=== PATIENT | female | born 1990 | race Caucasian/White ===

== ENCOUNTER 2018-03-01 08:35 | Emergency (ER) | payer MEDICAID, OTHER ==
[~2018-03-01] VITALS: Ht 172.7 cm; Wt 55.0 kg
[~2018-03-01 08:35] MED LIST: IBUP600 PO; PERI8.6T PO; PRENCAP6 PO
[2018-03-01 08:39] VITALS: BP 118/66; PULSE 66; RESP 18; TEMP 98.6; O2SAT 100
[2018-03-01] MEDS ORDERED: PREN1PAK9 PO (08:52)
[2018-03-01] MEDS ORDERED: VITA20003 PO (08:52)
[2018-03-01 09:51] LABS: AUTOMATED NEUTROPHIL # 6.6 TH/MM3 (1.8-7.7); BASOPHIL # 0.1 TH/MM3 (0-0.2); BASOPHIL % 0.8 % (0.0-2.0); EOSINOPHIL # 0.2 TH/MM3 (0-0.4); EOSINOPHIL % 1.8 % (0.0-4.0); HEMATOCRIT 41.8 % (35.0-46.0); HEMOGLOBIN 13.8 GM/DL (11.6-15.3); LYMPH % 19.1 % (9.0-44.0); LYMPHOCYTE # 1.8 TH/MM3 (1.0-4.8); MEAN CELL VOLUME 88.9 FL (80.0-100.0); MEAN CORPUSCULAR HEMOGLOBIN 29.4 PG (27.0-34.0); MEAN CORPUSCULAR HGB CONC 33.1 % (32.0-36.0); MEAN PLATELET VOLUME 8.2 FL (7.0-11.0); MONO % 6.8 % (0.0-8.0); MONOCYTE # 0.6 TH/MM3 (0-0.9); NEUT % 71.5 % (16.0-70.0); PLATELET COUNT 350 TH/MM3 (150-450); RED CELL DISTRIBUTION WIDTH 13.6 % (11.6-17.2); WHITE BLOOD COUNT 9.3 TH/MM3 (4.0-11.0)
[2018-03-01 10:04] LABS: ALBUMIN 3.7 GM/DL (3.4-5.0); AST (GOT) 13 U/L (15-37); BICARBONATE 25.2 MEQ/L (21.0-32.0); BLOOD UREA NITROGEN 9 MG/DL (7-18); CALCIUM 8.8 MG/DL (8.5-10.1); CHLORIDE 104 MEQ/L (98-107); CREATININE 0.78 MG/DL (0.50-1.00); GLOMERULAR FILTRATION RATE 90 ML/MIN (>89); GLUCOSE,RANDOM 99 MG/DL (74-106); SODIUM (NA) 139 MEQ/L (136-145)
--- NOTE | 2018-03-01 10:04 | PD ---
HPI Chief Complaint: Related Problem Time Seen by Provider: 08:51 Travel History International Travel<30 days: No Contact w/Intl Traveler<30days: No Traveled to known affect area: No History of Present Illness HPI This is a 27-year-old who is 11 weeks by ultrasound who presents to the emergency department with vaginal bleeding. She says she has been having spotting throughout the week and then this morning she woke up and she had a large amount of dark blood coming from her vagina feeling like she could have soaked through 2 pads, associated with abdominal cramping, constant, moderate severity with some lightheadedness. She has never had a miscarriage before. She did have an ultrasound which confirmed intrauterine with a normal heartbeat 3 weeks ago. PFSH Past Medical History Medical History: Denies Significant Hx Immunizations Current: Yes ?: LMP: 12/03/17 Past Surgical History Surgical History: No Previous Surgery Social History Alcohol Use: No Tobacco Use: No Substance Use: Yes ([facility] ) Allergies-Medications (Allergen,Severity, Reaction): Coded Allergies: amoxicillin (Unverified Allergy, Severe, HIVES, 03/01/18) Reported Meds & Prescriptions Reported Meds & Active Scripts Active Reported Vitamin D (Cholecalciferol) 2,000 Unit Tab 1,000 Unit PO WEEKLY + Complete Multi 18-0.8 & 290 mg ( Mv & Min W/Fe Prot Le) 18 Mg Iron-800 Mcg-290 Mg-225 Mg Handy PO DAILY Review of Systems Except as stated in HPI: all other systems reviewed are Neg Physical Exam Narrative GENERAL:Well appearing, no acute distress SKIN: Focused skin assessment warm and dry. HEAD: Atraumatic. Normocephalic. EYES: Pupils equal and round. No injection or drainage. ENT: Moist mucous membranes NECK: Trachea midline. CARDIOVASCULAR: Regular rate and rhythm. No murmur appreciated. RESPIRATORY: Clear to auscultation. Breath sounds equal bilaterally. GASTROINTESTINAL: Abdomen soft, mildly tender to palpation in the lower abdomen with no rebound or guarding. GANG SAWYER: Dark clots in the vault with no bright red bleeding, cervix is open MUSCULOSKELETAL: No obvious deformities. NEUROLOGICAL: Awake and alert. No obvious cranial nerve deficits. Moving all extremities. PSYCHIATRIC: Appropriate mood and affect; insight and judgment normal. Data Data Last Documented VS Vital Signs Date Time Temp Pulse Resp B/P (MAP) Pulse Ox O2 Delivery O2 Flow Rate FiO2 03/01/18 13:00 69 18 112/56 (74) 100 Room Air 03/01/18 08:39 98.6 Orders Orders Ed Poc Ultrasound (03/01/18 ) Complete Blood Count With Diff (03/01/18 09:34) Comprehensive Metabolic Panel (03/01/18 09:34) ^ Insert Iv (03/01/18 09:34) Beta Hcg (Quant/Titer) (03/01/18 09:34) Rhogam Only (03/01/18 09:35) Us Pelvis (Ques Pr/Ect)W Trans (03/01/18 ) Labs Laboratory Tests Test 03/01/18 09:15 White Blood Count 9.3 TH/MM3 Red Blood Count 4.70 MIL/MM3 Hemoglobin 13.8 GM/DL Hematocrit 41.8 % Mean Corpuscular Volume 88.9 FL Mean Corpuscular Hemoglobin 29.4 PG Mean Corpuscular Hemoglobin Concent 33.1 % Red Cell Distribution Width 13.6 % Platelet Count 350 TH/MM3 Mean Platelet Volume 8.2 FL Neutrophils (%) (Auto) 71.5 % Lymphocytes (%) (Auto) 19.1 % Monocytes (%) (Auto) 6.8 % Eosinophils (%) (Auto) 1.8 % Basophils (%) (Auto) 0.8 % Neutrophils # (Auto) 6.6 TH/MM3 Lymphocytes # (Auto) 1.8 TH/MM3 Monocytes # (Auto) 0.6 TH/MM3 Eosinophils # (Auto) 0.2 TH/MM3 Basophils # (Auto) 0.1 TH/MM3 CBC Comment DIFF FINAL Differential Comment Blood Urea Nitrogen 9 MG/DL Creatinine 0.78 MG/DL Random Glucose 99 MG/DL Total Protein 7.5 GM/DL Albumin 3.7 GM/DL Calcium Level 8.8 MG/DL Alkaline Phosphatase 40 U/L Aspartate Amino Transf (AST/SGOT) 13 U/L Alanine Aminotransferase (ALT/SGPT) 18 U/L Total Bilirubin 0.2 MG/DL Sodium Level 139 MEQ/L Potassium Level 3.8 MEQ/L Chloride Level 104 MEQ/L Carbon Dioxide Level 25.2 MEQ/L Anion Gap 10 MEQ/L Estimat Glomerular Filtration Rate 90 ML/MIN Human Chorionic Gonadotropin, Quant 3643 MIU/ML MDM Medical Decision Making Medical Screen Exam Complete: Yes Emergency Medical Condition: Yes Interpretation(s) Afebrile, no tachycardia, normotensive No leukocytosis Electrolytes are reassuring HCG is 3600 Last 24 hours Impressions Pelvis Ultrasound 03/01/18 0000 Signed Impressions: CONCLUSION: 1. No intrauterine gestational sac. No adnexal mass or definitive ectopic preg gurwinder. Media Account Executive reports patient may have possibly aborted fetus during the e xam. Correlation with serial beta hCG is recommended with repeat ultrasound exa m as appropriate. 2. Trace free fluid. Differential Diagnosis Ectopic , threatened miscarriage, incomplete miscarriage, complete miscarriage Narrative Course This is a 27-year-old female who presents to the emergency department with a large amount of vaginal bleeding. She had an ultrasound earlier this where she had an intrauterine and had a heart rate. She was placed in a monitor and an IV was established. Labs demonstrate an hCG of 3600. Ultrasound demonstrates no intrauterine . Based on the patient' s history and clinical exam this appears to be a complete miscarriage. Patient does have a history of a negative blood type so she was given RhoGam. She has some bleeding on exam but it is not severe. I think she is safe for discharge and follow-up with her physical therapy teacher. Diagnosis Primary Impression: Complete miscarriage Patient Instructions: General Instructions Additional Instructions: If your bleeding more than a pad an hour return to the emergency room. If you develop severe abdominal pain, fever, persistent vomiting or inability to eat, heavy vaginal bleeding using more than one pad an hour, lightheadedness , dizziness, chest pain or shortness of breath return to the emergency department immediately. Followup with your physical therapy teacher as soon as possible. Take Tylenol as needed for pain. Med/Other Pt SpecificInfo: No Change to Meds Disposition: 01 DISCHARGE HOME Condition: Stable Lali Oconnell MD March 01, 2018 10:04
[2018-03-01 10:05] LABS: ALT (GPT) 18 U/L (10-53)
[2018-03-01 10:22] LABS: ALKALINE PHOSPHATASE 40 U/L (45-117); TOTAL BILIRUBIN ADULT 0.2 MG/DL (0.2-1.0); TOTAL PROTEIN 7.5 GM/DL (6.4-8.2)
[2018-03-01 13:00] VITALS: BP 112/56; PULSE 69; RESP 18; O2SAT 100
--- NOTE | 2018-03-01 13:02 | RADRPT ---
EXAM DATE: 03/01/2018 12:48 PM EDT AGE/SEX: 27 years / Female INDICATIONS: Bleeding with . CLINICAL DATA: This is the patient's initial encounter. Patient reports that signs and symptoms have been present for 1 day and indicates a pain score of 4/10. MEDICAL/SURGICAL HISTORY: . None. COMPARISON: No prior [facility] exams available for comparison. MEASUREMENTS: Uterus:__11.7 x 7.9 x 6.8 cm Endometrial Stripe:__8 mm Right Ovary:__ 2.9 x 1.5 x 2.2 cm Left Ovary:__ 3.0 x 1.7 1.1 cm FINDINGS: Uterus: The myometrium has homogeneous echotexture without mass. No endometrial gestational sac is identified. Trace fluid in the cervix. Right Ovary: Normal in appearance. Left Ovary: Normal in appearance. Other: Trace free fluid in the cul-de-sac. CONCLUSION: 1. No intrauterine gestational sac. No adnexal mass or definitive ectopic . Veterinary Milk Specialist rep orts patient may have possibly aborted fetus during the exam. Correlation with serial beta hCG is rec ommended with repeat ultrasound exam as appropriate. 2. Trace free fluid. Electronically signed by: Sergio Esparza MD 03/01/2018 1:00 PM EDT
[2018-03-01 13:55] VITALS: BP 104/59; PULSE 72; RESP 18; TEMP 98.6; O2SAT 100
[2018-03-01 14:24] VITALS: BP 114/59
== END 2018-03-01 14:28 | disposition home or self-care (01) ==
LOC: NEPC 08:35
DX: O03.9 Complete or unspecified spontaneous abortion without complication (principal); R10.9 Unspecified abdominal pain; Z88.0 Allergy status to penicillin
CPT/HCPCS: 76700; 76817; 80053; 84702; 85025; 90384; 99284; J2790

== ENCOUNTER 2018-03-08 11:07 | Emergency (ER) | payer MEDICAID, OTHER ==
[~2018-03-08] VITALS: Ht 172.7 cm; Wt 52.0 kg
[~2018-03-08 11:07] MED LIST changes: -IBUP600 PO; -PERI8.6T PO; +PREN1PAK9 PO; -PRENCAP6 PO; +VITA20003 PO
[2018-03-08] MEDS ORDERED: LACTATED RINGER'S 1000 ML INJ 1,000 ML IV ONE (11:08)
[2018-03-08] MEDS ORDERED: PHENYLEPH/NS 1000 MCG/10 ML SYR IV ONE (11:08)
[2018-03-08] MEDS ORDERED: ROCURONIUM INJ 50 MG/5 ML SYRINGE IV PUSH ONE (11:08)
[2018-03-08] MEDS ORDERED: ONDANSETRON HCL 4 MG/2 ML VIAL IV PUSH ONE (11:08)
[2018-03-08] MEDS ORDERED: LIDOCAINE HCL 1% PF 5 ML SYRINGE OTHER ONE (11:08)
[2018-03-08] MEDS ORDERED: SUCCINYLCHOLINE CHLORIDE 200 MG/10 ML VIAL IV ONE (11:08)
[2018-03-08] MEDS ORDERED: PROPOFOL 200 MG/20 ML AMP IV ONE (11:08)
[2018-03-08] MEDS ORDERED: SODIUM CHLORID 0.9% 500 ML INJ 500 ML IV ONE (11:08)
[2018-03-08] MEDS ORDERED: DEXAMETHASONE SOD PHOS 4 MG/ML VIAL IV ONE (11:08)
[2018-03-08 11:12] VITALS: BP 125/61; PULSE 100; RESP 16; TEMP 98.5; O2SAT 100
[2018-03-08 11:35] LABS: BILIRUBIN, URINE NEG (NEG); BLOOD, URINE SMALL (NEG); GLUCOSE,URINE NEG (NEG); KETONE, URINE NEG (NEG); NITRITE,URINE NEG (NEG); SQUAMOUS EPITHELIAL CELL URINE <1 /hpf (0-5); URINE COLOR COLORLESS (YELLW/STRAW); URINE LEUKOCYTE ESTERASE NEG (NEG)
[2018-03-08 12:20] LABS: AUTOMATED NEUTROPHIL # 8.6 TH/MM3 (1.8-7.7); BASOPHIL # 0.1 TH/MM3 (0-0.2); BASOPHIL % 0.5 % (0.0-2.0); EOSINOPHIL # 0.1 TH/MM3 (0-0.4); EOSINOPHIL % 0.9 % (0.0-4.0); HEMATOCRIT 21.5 % (35.0-46.0); HEMOGLOBIN 7.3 GM/DL (11.6-15.3); LYMPH % 11.7 % (9.0-44.0); LYMPHOCYTE # 1.3 TH/MM3 (1.0-4.8); MEAN CELL VOLUME 88.6 FL (80.0-100.0); MEAN CORPUSCULAR HEMOGLOBIN 30.1 PG (27.0-34.0); MEAN PLATELET VOLUME 7.7 FL (7.0-11.0); MONO % 7.1 % (0.0-8.0); MONOCYTE # 0.8 TH/MM3 (0-0.9); NEUT % 79.8 % (16.0-70.0); PLATELET COUNT 355 TH/MM3 (150-450); RED BLOOD COUNT 2.43 MIL/MM3 (4.00-5.30); RED CELL DISTRIBUTION WIDTH 12.9 % (11.6-17.2); WHITE BLOOD COUNT 10.8 TH/MM3 (4.0-11.0)
[2018-03-08 12:25] VITALS: BP 96/54; PULSE 73; RESP 18; O2SAT 100
[2018-03-08 12:32] LABS: BICARBONATE 25.7 MEQ/L (21.0-32.0); CALCIUM 8.4 MG/DL (8.5-10.1); CREATININE 0.72 MG/DL (0.50-1.00)
[2018-03-08] MEDS ORDERED: SODIUM CHLOR 0.9% 1000 ML INJ 1,000 ML IV SCH ×2 (12:43→14:15)
--- NOTE | 2018-03-08 12:51 | PD ---
HPI Chief Complaint: Staff Accountant Problem/Complaint Time Seen by Provider: 12:13 Travel History International Travel<30 days: No Contact w/Intl Traveler<30days: No Traveled to known affect area: No History of Present Illness HPI 27-year-old female presents to the emergency department with complaint of continued vaginal bleeding and passing large clots after having a miscarriage approximately 1 week ago. Reports feeling nauseated and dizzy. She did try calling to make an appointment with an SOLE RUFFER yesterday and was told that since she is not anymore she can be seen. She was given a phone number to call and it was disconnected. Says her bleeding is worse between 7 PM and 9:30 PM when she starts alanis and sitting on the toilet and passing clots. Otherwise, her bleeding throughout the day is like a normal period. She does have some abdominal cramping throughout the day also, and it is also worse between 7 and 9:30 PM. Denies fever, vomiting. Did note foul-smelling vaginal discharge that started today. Denies dysuria. Denies chest pain. Reports feeling a little short of breath, at times. Has not taken any medication or try any treatments to alleviate her symptoms. No known aggravating or relieving factors. Symptoms are moderate to severe in severity. No primary care provider. No SOLE RUFFER. Allergies to amoxicillin and a plan. Denies significant past medical history. Has no other medical complaints. No other modifying factors or associated signs and symptoms. PFSH Past Medical History Medical History: Denies Significant Hx Immunizations Current: Yes Tetanus Vaccination: < 5 Years Influenza Vaccination: No ?: Unknown LMP: 12/03/17 Past Surgical History Surgical History: No Previous Surgery Social History Alcohol Use: No Tobacco Use: No [facility] Allergies-Medications (Allergen,Severity, Reaction): Coded Allergies: amoxicillin (Unverified Allergy, Severe, HIVES, 03/08/18) Reported Meds & Prescriptions Reported Meds & Active Scripts Active Reported Vitamin D (Cholecalciferol) 2,000 Unit Tab 1,000 Unit PO WEEKLY + Complete Multi 18-0.8 & 290 mg ( Mv & Min W/Fe Prot Le) 18 Mg Iron-800 Mcg-290 Mg-225 Mg Handy PO DAILY Review of Systems Except as stated in HPI: all other systems reviewed are Neg Physical Exam Narrative GENERAL: Well-nourished, well-developed female female patient, in no acute distress; afebrile, nontoxic-appearing SKIN: Pale. Warm and dry. HEAD: Atraumatic. Normocephalic. EYES: Pupils equal and round. No scleral icterus. No injection or drainage. ENT: Mucous membranes pink and moist. NECK: Trachea midline. No lymphadenopathy. CARDIOVASCULAR: Regular rate and rhythm. No murmur appreciated. RESPIRATORY: No accessory muscle use. Clear to auscultation. Breath sounds equal bilaterally. GASTROINTESTINAL: Abdomen soft, non-tender, nondistended. Bilateral pelvic region nontender to palpation. Hepatic and splenic margins not palpable. No guarding, rigidity, rebound tenderness. PELVIC: Exam done in the presence of a nurse. Speculum exam reveals non/ edematous and non/erythematous cervix with dark red, foul-smelling discharge; retained products of conception visualized. BACK: No CVA tenderness. MUSCULOSKELETAL: No obvious deformities. No clubbing. No cyanosis. No edema. NEUROLOGICAL: Awake and alert. No obvious cranial nerve deficits. Motor grossly within normal limits. Normal speech. PSYCHIATRIC: Appropriate mood and affect; insight and judgment normal. Data Data Last Documented VS Vital Signs Date Time Temp Pulse Resp B/P (MAP) Pulse Ox O2 Delivery O2 Flow Rate FiO2 03/08/18 12:25 73 18 96/54 (68) 100 Room Air 03/08/18 11:12 98.5 Orders Orders Urinalysis - C+S If Indicated (03/08/18 11:12) Complete Blood Count With Diff (03/08/18 11:12) Iv Access Insert/Monitor (03/08/18 11:12) Oxygen Administration (03/08/18 11:12) Oximetry (03/08/18 11:12) Ed Urine Pregnancytest Poc (03/08/18 11:12) Basic Metabolic Panel (Bmp) (03/08/18 11:12) Sodium Chlor 0.9% 1000 Ml Inj (Ns 1000 M (03/08/18 12:43) Beta Hcg (Quant/Titer) (03/08/18 12:43) Us Pelvis (Ques Pr/Ect)W Trans (03/08/18 ) Type And Screen (03/08/18 12:43) Gc And Chlamydia Pcr (03/08/18 12:46) Wet Prep Profile (03/08/18 12:46) Ketorolac Inj (Toradol Inj) (03/08/18 13:45) Red Blood Cells (Rbc) (03/08/18 14:15) Blood Product Administration (03/08/18 14:15) Sodium Chlor 0.9% 250 Ml Inj (Ns 250 Ml (03/08/18 14:15) Sodium Chlor 0.9% 1000 Ml Inj (Ns 1000 M (03/08/18 14:15) Admit Order (Ed Use Only) (03/08/18 14:55) Labs Laboratory Tests Test 03/08/18 11:15 03/08/18 11:50 03/08/18 14:30 Urine Color COLORLESS Urine Turbidity CLEAR Urine pH 7.0 Urine Specific [place] 1.000 Urine Protein NEG mg/dL Urine Glucose (UA) NEG mg/dL Urine Ketones NEG mg/dL Urine Occult Blood SMALL Urine Nitrite NEG Urine Bilirubin NEG Urine Urobilinogen LESS THAN 2.0 MG/DL Urine Leukocyte Esterase NEG Urine Squamous Epithelial Cells <1 /hpf Microscopic Urinalysis Comment CULT NOT INDICATED White Blood Count 10.8 TH/MM3 Red Blood Count 2.43 MIL/MM3 Hemoglobin 7.3 GM/DL Hematocrit 21.5 % Mean Corpuscular Volume 88.6 FL Mean Corpuscular Hemoglobin 30.1 PG Mean Corpuscular Hemoglobin Concent 34.0 % Red Cell Distribution Width 12.9 % Platelet Count 355 TH/MM3 Mean Platelet Volume 7.7 FL Neutrophils (%) (Auto) 79.8 % Lymphocytes (%) (Auto) 11.7 % Monocytes (%) (Auto) 7.1 % Eosinophils (%) (Auto) 0.9 % Basophils (%) (Auto) 0.5 % Neutrophils # (Auto) 8.6 TH/MM3 Lymphocytes # (Auto) 1.3 TH/MM3 Monocytes # (Auto) 0.8 TH/MM3 Eosinophils # (Auto) 0.1 TH/MM3 Basophils # (Auto) 0.1 TH/MM3 CBC Comment DIFF FINAL Differential Comment Blood Urea Nitrogen 7 MG/DL Creatinine 0.72 MG/DL Random Glucose 114 MG/DL Calcium Level 8.4 MG/DL Sodium Level 142 MEQ/L Potassium Level 4.1 MEQ/L Chloride Level 107 MEQ/L Carbon Dioxide Level 25.7 MEQ/L Anion Gap 9 MEQ/L Estimat Glomerular Filtration Rate 99 ML/MIN Human Chorionic Gonadotropin, Quant 470 MIU/ML Clue Cells (Wet Prep) NONE SEEN Vaginal Trichomonas (Wet Prep) NONE SEEN Vaginal Yeast (Wet Prep) NONE SEEN MDM Medical Decision Making Medical Screen Exam Complete: Yes Emergency Medical Condition: Yes Medical Record Reviewed: Yes Differential Diagnosis Incomplete miscarriage, retained products of conception, anemia, vaginal bleeding Narrative Course 27-year-old female that was seen here on March 01 and diagnosed with complete miscarriage returns with continued vaginal bleeding and passing clots. On March 01 her hemoglobin was 13.8. Today her hemoglobin is 7.3. The patient is pale. She is complaining of dizziness and feeling a little short of breath at times. Patient's blood type is AB-. She was administered RhoGam on March 01. I discussed the patient with Dr. Mancilla, my attending physician, and plan of care was discussed. CBC, CMP, urinalysis, beta-hCG, IV, normal saline bolus, pelvic ultrasound, wet prep, chlamydia, gonorrhea, type and screen ordered. 2 units RBC's ordered. 1420: BMP unremarkable. Beta-hCG 470. Beta-hCG on March 01-3642. Urinalysis without signs of infection. 1440: I spoke with THUAN [facility]; report given and he will come to see the patient 1455: Dr. Cohn at bedside. Patient will be admitted to Dr. Carmine Walker. Physician Communication Physician Communication THUAN [facility] Diagnosis Primary Impression: Retained products of conception Additional Impressions: Low hemoglobin Vaginal bleeding Admitting Information Admitting Physician Requests: Admit Katya Cisneros March 08, 2018 12:51
[2018-03-08] MEDS ORDERED: KETOROLAC TROMETHAMINE 30 MG/ML (IVP) VIAL IV PUSH ONE (13:45)
[2018-03-08] MEDS ORDERED: SODIUM CHLOR 0.9% 250 ML INJ 250 ML IV ONE (14:15)
--- NOTE | 2018-03-08 15:03 | RADRPT ---
EXAM DATE: 03/08/2018 2:49 PM EDT AGE/SEX: 27 years / Female INDICATIONS: Continued pelvic bleeding. The beta-hCG level has dropped from 3643 to 470. CLINICAL DATA: This is the patient's subsequent encounter. Patient reports that signs and symptoms h ave been present for 1 week and indicates a pain score of 4/10. MEDICAL/SURGICAL HISTORY: . Substance use. . None. [place] [facility] [place]QUEST PREG/ECTOPIC[place] W/TRANSVAG, 03/01/2018. . No external comparison . MEASUREMENTS: Uterus:__9.4 x 6.3 x 5.9 cm Endometrial Stripe:__>20 mm Right Ovary:__ 3.3 x 2.1 x 1.9 cm Left Ovary:__ 2.6 x 2.5 x 1.1 cm FINDINGS: Uterus: Uterus is again noted to be retroverted. The endometrium is thickened and measures up to 2.8 cm in greatest diameter in the lower uterine segment. No gestational sac is identified. Right Ovary: Unremarkable in appearance. Left Ovary: Unremarkable in appearance. Other: There is a small amount of fluid in the cul-de-sac greater on the left side than the right. CONCLUSION: 1. Thickened endometrium with no intrauterine gestational sac. 2. Unremarkable ovaries. 3. Small amount of fluid in the cul-de-sac. Electronically signed by: Dilshad Quiñonez MD 03/08/2018 3:02 PM EDT
[2018-03-08] MEDS ORDERED: DOXYCYCLINE INJ 100 MG in SODIUM CHLORIDE 0.9% INJ 100 ML IV ONE (15:30)
--- NOTE | 2018-03-08 15:32 | HHI.HP ---
HPI Travel History International Travel<30 Days: No Contact w/Intl Traveler<30Days: No Known Affected Area: No History of Present Illness HPI 27 yo F at appx 12 wks gestation who presented to the ED with vaginal bleeding associated with lightheadedness and dizziness. Patient was found to have low hgb at 7.3. Pelvic us Para: 1 : 2 History Past Medical History Medical History: Denies Significant Hx Obstetric History Obstetric History x1 Past Surgical History Surgical History: No Previous Surgery Family History Family History: Negative Social History Alcohol Use: No Tobacco Use: No Substance Abuse: Yes (marijuana daily) Allergies-Medications (Allergen,Severity, Reaction): Coded Allergies: amoxicillin (Unverified Allergy, Severe, HIVES, 03/08/18) Home Meds Reported Medications Cholecalciferol (Vitamin D) 2,000 Unit Tab, 1000 UNIT PO WEEKLY 03/01/18 Mv & Min W/Fe Prot Le ( + Complete Multi 18-0.8 & 290 mg) 18 Mg Iron-800 Mcg-290 Mg-225 Mg Handy, PO DAILY 03/01/18 Review of Systems Except as stated in HPI: all other systems reviewed are Neg General / Constitutional: No: Chills Physical Exam Vital Signs Date Time Temp Pulse Resp B/P (MAP) Pulse Ox O2 Delivery O2 Flow Rate FiO2 03/08/18 12:25 73 18 96/54 (68) 100 Room Air 03/08/18 12:25 100 Room Air 03/08/18 12:19 18 03/08/18 11:12 98.5 100 16 125/61 (82) 100 Narrative GENERAL: Well-nourished, well-developed patient. SKIN: Warm and dry. HEAD: Normocephalic and atraumatic. EYES: No scleral icterus. No injection or drainage. ENT: No nasal drainage noted. Mucous membranes pink. Airway patent. NECK: Supple, trachea midline. No JVD. CARDIOVASCULAR: Regular rate and rhythm without murmurs, gallops, or rubs. RESPIRATORY: Breath sounds equal bilaterally. No accessory muscle use. BREASTS: Bilateral exam showed no masses , no retractions, no nipple discharge. ABDOMEN/GI: Abdomen soft, non-tender, bowel sounds present, no rebound, no guarding Gravid to [-] weeks size Fundal Height: [-] GENITOURINARY: External Genitalia: intact and normal in appearance BUS glands: [-] Cervix: [-] Dilatation: [-] Effacement: [-] Station: [-] Presentation: [-] Membranes: [intact or ruptured] Uterine Contractions: [-] FHT's: Category: [-] Baseline: [-] Reactive: [-] Variability: [-] Decels: [-] EXTREMITIES: No cyanosis or edema. BACK: Nontender without obvious deformity. No CVA tenderness. NEUROLOGICAL: Awake and alert. Motor and sensory grossly within normal limits. Five out of 5 muscle strength in all muscle groups. Normal speech. Caprini VTE Risk Assessment Caprini VTE Risk Assessment: No/Low Risk (score <= 1) VTE Pharm Contraindication: Active bleeding Caprini Risk Assessment Model Point Value = 1 Point Value = 2 Point Value = 3 Point Value = 5 Age 41-60 Minor surgery BMI > 25 kg/m2 Swollen legs Varicose veins or History of unexplained or recurrent spontaneous Oral contraceptives or hormone replacement Sepsis (< 1 month) Serious lung disease, including pneumonia (< 1 month) Abnormal pulmonary function Acute myocardial infarction Congestive heart failure (< 1 month) History of inflammatory bowel disease Medical patient at bed rest Age 61-74 Arthroscopic surgery Major open surgery (> 45 min) Laparoscopic surgery (> 45 min) Malignancy Confined to bed (> 72 hours) Immobilizing plaster cast Central venous access Age >= 75 History of VTE Family history of VTE Factor V Leiden Prothrombin [id number] Lupus anticoagulant Anticardiolipin antibodies Elevated serum homocysteine Heparin-induced thrombocytopenia Other congenital or acquired thrombophilia Stroke (< 1 month) Elective arthroplasty Hip, pelvis, or leg fracture Acute spinal cord injury (< 1 month) Prophylaxis Regimen Total Risk Factor Score Risk Level Prophylaxis Regimen 0-1 Low Early ambulation 2 Moderate Order ONE of the following: *Sequential Compression Device (SCD) *Heparin 5000 units SQ BID 3-4 Higher Order ONE of the following medications: *Heparin 5000 units SQ TID *Enoxaparin/Lovenox 40 mg SQ daily (WT < 150 kg, CrCl > 30 mL/min) *Enoxaparin/Lovenox 30 mg SQ daily (WT < 150 kg, CrCl > 10-29 mL/min) *Enoxaparin/Lovenox 30 mg SQ BID (WT < 150 kg, CrCl > 30 mL/min) AND/OR *Sequential Compression Device (SCD) 5 or more Highest Order ONE of the following medications: *Heparin 5000 units SQ TID (Preferred with Epidurals) *Enoxaparin/Lovenox 40 mg SQ daily (WT < 150 kg, CrCl > 30 mL/min) *Enoxaparin/Lovenox 30 mg SQ daily (WT < 150 kg, CrCl > 10-29 mL/min) *Enoxaparin/Lovenox 30 mg SQ BID (WT < 150 kg, CrCl > 30 mL/min) AND *Sequential Compression Device (SCD) Data Data Orders Orders Urinalysis - C+S If Indicated (03/08/18 11:12) Complete Blood Count With Diff (03/08/18 11:12) Iv Access Insert/Monitor (03/08/18 11:12) Oxygen Administration (03/08/18 11:12) Oximetry (03/08/18 11:12) Ed Urine Pregnancytest Poc (03/08/18 11:12) Basic Metabolic Panel (Bmp) (03/08/18 11:12) Sodium Chlor 0.9% 1000 Ml Inj (Ns 1000 M (03/08/18 12:43) Beta Hcg (Quant/Titer) (03/08/18 12:43) Us Pelvis (Ques Pr/Ect)W Trans (03/08/18 ) Type And Screen (03/08/18 12:43) Gc And Chlamydia Pcr (03/08/18 12:46) Wet Prep Profile (03/08/18 12:46) Ketorolac Inj (Toradol Inj) (03/08/18 13:45) Red Blood Cells (Rbc) (03/08/18 14:15) Blood Product Administration (03/08/18 14:15) Sodium Chlor 0.9% 250 Ml Inj (Ns 250 Ml (03/08/18 14:15) Sodium Chlor 0.9% 1000 Ml Inj (Ns 1000 M (03/08/18 14:15) Admit Order (Ed Use Only) (03/08/18 14:55) Doxycycline Inj (Vibramycin Inj) (03/08/18 15:30) Labs Laboratory Tests Test 03/08/18 11:15 03/08/18 11:50 03/08/18 14:30 Urine Color COLORLESS Urine Turbidity CLEAR Urine pH 7.0 Urine Specific [place] 1.000 Urine Protein NEG Urine Glucose (UA) NEG Urine Ketones NEG Urine Occult Blood SMALL Urine Nitrite NEG Urine Bilirubin NEG Urine Urobilinogen LESS THAN 2.0 Urine Leukocyte Esterase NEG Urine Squamous Epithelial Cells <1 Microscopic Urinalysis Comment CULT NOT INDICATED White Blood Count 10.8 Red Blood Count 2.43 Hemoglobin 7.3 Hematocrit 21.5 Mean Corpuscular Volume 88.6 Mean Corpuscular Hemoglobin 30.1 Mean Corpuscular Hemoglobin Concent 34.0 Red Cell Distribution Width 12.9 Platelet Count 355 Mean Platelet Volume 7.7 Neutrophils (%) (Auto) 79.8 Lymphocytes (%) (Auto) 11.7 Monocytes (%) (Auto) 7.1 Eosinophils (%) (Auto) 0.9 Basophils (%) (Auto) 0.5 Neutrophils # (Auto) 8.6 Lymphocytes # (Auto) 1.3 Monocytes # (Auto) 0.8 Eosinophils # (Auto) 0.1 Basophils # (Auto) 0.1 CBC Comment DIFF FINAL Differential Comment Blood Urea Nitrogen 7 Creatinine 0.72 Random Glucose 114 Calcium Level 8.4 Sodium Level 142 Potassium Level 4.1 Chloride Level 107 Carbon Dioxide Level 25.7 Anion Gap 9 Estimat Glomerular Filtration Rate 99 Human Chorionic Gonadotropin, Quant 470 Clue Cells (Wet Prep) NONE SEEN Vaginal Trichomonas (Wet Prep) NONE SEEN Vaginal Yeast (Wet Prep) NONE SEEN Assessment/Plan Problem List: (1) Vaginal bleeding ICD Codes: N93.9 - Abnormal uterine and vaginal bleeding, unspecified Status: Acute Plan: Hgb of 7.4 with c/o of symptomatic anemia Pt with1 wk history of vaginal bleeding with clots Plan for D&C doxy 100mg IV x1 1 unit PRBCS (2) Incomplete ICD Codes: O03.4 - Incomplete spontaneous without complication Plan: see plan above Gianfranco Roblero MD, R1 March 08, 2018 15:32
[2018-03-08] MEDS ORDERED: ACETAMINOPHEN 1000 MG/100 ML 100 ML IV ONE (15:55)
[2018-03-08 16:00] VITALS: BP 103/57; PULSE 82; RESP 16; O2SAT 100
[2018-03-08] MEDS ORDERED: METHYLERGONOVINE MALEATE 0.2 MG/ML VIAL ONE (16:35)
[2018-03-08] MEDS ORDERED: MISOPROSTOL 200 MCG TAB RECTAL ONE (17:00)
[2018-03-08] MEDS ORDERED: DO NOT ADM ANY ANTICOAGULANT DRUGS PRN (17:20)
[2018-03-08] MEDS ORDERED: MIDAZOLAM HCL 2 MG/2 ML VIAL ONE (17:25)
[2018-03-08] MEDS ORDERED: ONDANSETRON ODT 4 MG TAB SL PRN (17:45)
[2018-03-08] MEDS ORDERED: traMADol HCL 50 MG TAB PO PRN (17:45)
[2018-03-08] MEDS ORDERED: KETOROLAC TROMETHAMINE 60 MG/2 ML (IM) VIAL IM PRN (17:45)
--- NOTE | 2018-03-08 17:51 | MP ---
cc: Carmine Walker MD, Christopher J MD DATE OF OPERATION: 03/08/2018 PREOPERATIVE DIAGNOSIS: Incomplete POSTOPERATIVE DIAGNOSIS: Incomplete PROCEDURE PERFORMED: Suction D and C. SURGEON: Carmine Walker MD ANESTHESIA: General endotracheal. ESTIMATED BLOOD LOSS: 20 mL URINE OUTPUT: 300 mL FINDINGS: External genitalia normal. POP-Q score Aa is 02, Ap -1, point C is -6. Total vaginal length is 10, genital hiatus is 6, perineal body is 4. Uterus was anteverted and flexed, approximately 12 weeks size. Considerable amount of products of conception at the os, otherwise, unremarkable exam. Following exam, the uterine cavity is empty. It has a gritty feel in all quadrants. SPECIMENS: Products of conception. COMPLICATIONS: None. DISPOSITION: Recovery stable COUNTS: Needle and sponge counts correct. DRAINS: None. ANTIBIOTIC PROPHYLAXIS: Doxycycline. DVT PROPHYLAXIS: Sequential compression devices. A timeout procedure and identification per protocol. PROCEDURE IN DETAIL: The patient with signs and symptoms consistent with incomplete AB. She had an hematocrit of 20, which was down from approximately 40 three days ago. She had received 1 unit of blood. She was taken to the OR for suction D and C. The patient was placed in dorsal lithotomy position with careful attention paid to placing the legs in stirrups to avoid undue stress to sensitive neurovascular structures. The above findings noted. Neurovascularly integrity documented. The patient received 0.2 mg of Methergine IM. The cervix was identified, grasped with a ring forceps. The products of conception were teased out with ring forceps. Suction curettage was performed using a 12 mm curved curette with a suction of 60 mmHg. Uterus sounded to 9 cm. There was no sign of any perforation. There was a gritty feel in all quadrants. Hemostasis was good. The procedure was concluded. The patient received Cytotec 800 mcg per vagina, reversed from anesthesia and taken to recovery room in stable condition. Carmine Walker MD CJTaya/ , 05:37 PM , 05:51 PM
[2018-03-08 18:38] VITALS: BP 112/58; PULSE 83; RESP 16; TEMP 97.2; O2SAT 100
--- NOTE | 2018-03-13 16:39 | PD ---
Physical Exam Narrative I, Dr. Mancilla, have reviewed the mid-level practitioners documentation and am in agreement, met with the patient [id number], made the diagnosis, and medical decision making was done by me. Please see mid-level provider note for full history and physical and disposition. My assessment and findings: Patient is status post miscarriage approximately 1 week ago. She presented to the emergency department with abdominal pain, vaginal bleeding, lightheadedness, and foul-smelling vaginal discharge. She was afebrile and hypotensive. Patient was placed on a monitoring coordinator, IV access was obtained, and labs were sent and ultrasound was ordered. Patient was found to be afebrile and hypotensive. The pelvic in the emergency department showed retained products of conception. She was given IV normal saline. Her hemoglobin was 7.3 hematocrit was 21.5. Additionally her wet prep was negative, and she had received RhoGam last week. Her beta hCG was decreased from prior and ultrasound showed no intrauterine gestational sac. She was transfused with PRBCs, admitted to OB, and taken to the OR for D&C. Data Data Orders Orders Urinalysis - C+S If Indicated (03/08/18 11:12) Complete Blood Count With Diff (03/08/18 11:12) Iv Access Insert/Monitor (03/08/18 11:12) Oxygen Administration (03/08/18 11:12) Oximetry (03/08/18 11:12) Ed Urine Pregnancytest Poc (03/08/18 11:12) Basic Metabolic Panel (Bmp) (03/08/18 11:12) Sodium Chlor 0.9% 1000 Ml Inj (Ns 1000 M (03/08/18 12:43) Beta Hcg (Quant/Titer) (03/08/18 12:43) Us Pelvis (Ques Pr/Ect)W Trans (03/08/18 ) Type And Screen (03/08/18 12:43) Gc And Chlamydia Pcr (03/08/18 12:46) Wet Prep Profile (03/08/18 12:46) Ketorolac Inj (Toradol Inj) (03/08/18 13:45) Red Blood Cells (Rbc) (03/08/18 14:15) Blood Product Administration (03/08/18 14:15) Sodium Chlor 0.9% 250 Ml Inj (Ns 250 Ml (03/08/18 14:15) Sodium Chlor 0.9% 1000 Ml Inj (Ns 1000 M (03/08/18 14:15) Admit Order (Ed Use Only) (03/08/18 14:55) Labs Laboratory Tests Test 03/08/18 11:15 03/08/18 11:50 03/08/18 14:30 Urine Color COLORLESS Urine Turbidity CLEAR Urine pH 7.0 Urine Specific [place] 1.000 Urine Protein NEG mg/dL Urine Glucose (UA) NEG mg/dL Urine Ketones NEG mg/dL Urine Occult Blood SMALL Urine Nitrite NEG Urine Bilirubin NEG Urine Urobilinogen LESS THAN 2.0 MG/DL Urine Leukocyte Esterase NEG Urine Squamous Epithelial Cells <1 /hpf Microscopic Urinalysis Comment CULT NOT INDICATED White Blood Count 10.8 TH/MM3 Red Blood Count 2.43 MIL/MM3 Hemoglobin 7.3 GM/DL Hematocrit 21.5 % Mean Corpuscular Volume 88.6 FL Mean Corpuscular Hemoglobin 30.1 PG Mean Corpuscular Hemoglobin Concent 34.0 % Red Cell Distribution Width 12.9 % Platelet Count 355 TH/MM3 Mean Platelet Volume 7.7 FL Neutrophils (%) (Auto) 79.8 % Lymphocytes (%) (Auto) 11.7 % Monocytes (%) (Auto) 7.1 % Eosinophils (%) (Auto) 0.9 % Basophils (%) (Auto) 0.5 % Neutrophils # (Auto) 8.6 TH/MM3 Lymphocytes # (Auto) 1.3 TH/MM3 Monocytes # (Auto) 0.8 TH/MM3 Eosinophils # (Auto) 0.1 TH/MM3 Basophils # (Auto) 0.1 TH/MM3 CBC Comment DIFF FINAL Differential Comment Blood Urea Nitrogen 7 MG/DL Creatinine 0.72 MG/DL Random Glucose 114 MG/DL Calcium Level 8.4 MG/DL Sodium Level 142 MEQ/L Potassium Level 4.1 MEQ/L Chloride Level 107 MEQ/L Carbon Dioxide Level 25.7 MEQ/L Anion Gap 9 MEQ/L Estimat Glomerular Filtration Rate 99 ML/MIN Human Chorionic Gonadotropin, Quant 470 MIU/ML Clue Cells (Wet Prep) NONE SEEN Vaginal Trichomonas (Wet Prep) NONE SEEN Vaginal Yeast (Wet Prep) NONE SEEN Chlamydia trachomatis DNA (PCR) NOT DETECTED Neisseria gonorrhoeae DNA (PCR) NOT DETECTED MDM Supervised Visit with LELAND: Yes Diagnosis Primary Impression: Retained products of conception Additional Impressions: Vaginal bleeding Low hemoglobin Incomplete Admitting Information Admitting Physician Requests: Admit Patient Instructions: Doxycycline (By mouth), Ketorolac (By mouth), Dilation and Curettage (DC), General Anesthesia (DC) Disposition: 01 DISCHARGE HOME Condition: Lilly Acosta MD Mar 13, 2018 16:39
== END 2018-03-08 18:42 | disposition home or self-care (01) ==
LOC: NEPD 11:07 → UNDOADMIN 14:58 → NEDA 14:58 → NEPD 18:42
DX: O03.1 Delayed or excessive hemorrhage following incomplete spontaneous abortion (principal); D64.9 Anemia, unspecified
CPT/HCPCS: 01965; 36430; 59812; 76700; 76817; 80048; 81001; 84702; 85025; 86077; 86850; 86870; 86900; 86901; 86920; 86922; 87210; 87491; 87591; 88305; 96361; 96374; 99285; J0131; J0330; J1100; J1885; J2210; J2250; J2370; J2405; J3010; J7030; J7040; J7120; P9016